=== PATIENT | female | born 1940 | race Caucasian/White ===

== ENCOUNTER 2021-07-25 09:39 | Inpatient (IN) ==
[2021-07-25 11:39] LABS: Basophils % 0.3 %; Eosinophils # 0.1 K/mcL (0.0-0.6); Eosinophils % 0.6 %; Hematocrit 38.2 % (35.3-44.9); Immature Granulocytes % 0.3 % (0-4); Mean Corpuscular HGB Conc 31.9 g/dL (31.6-35.5); Mean Corpuscular Hemoglobin 30.9 pg (28.0-33.3); Mean Corpuscular Volume 96.7 fL (83.0-100.0); Mean Platelet Volume 12.7 fL (9.4-12.4); Monocytes # 0.8 K/mcL (0.0-1.3); Monocytes % 7.3 %; Neutrophils # 9.2 K/mcL (1.6-8.9); Platelet Count 232 K/mcL (140-400); Red Blood Count 3.95 M/mcL (3.82-4.97); Red Cell Distribution Width 14.2 % (11.5-14.5); Segmented Neutrophils % 82.5 %; White Blood Count 11.1 K/mcL (4.3-11.1)
[2021-07-25 11:47] LABS: Hemoglobin 12.2 g/dL (11.5-15.4)
[2021-07-25 11:56] LABS: Troponin I 0.07 ng/mL (< 0.04)
[2021-07-25 12:00] LABS: INR 1.3; Prothrombin Time 14.8 Seconds (9.4-12.1)
[2021-07-25 12:02] LABS: Activated Partial Thrombo Time 32.2 Seconds (26.0-36.0)
[2021-07-25 12:06] LABS: Alanine Aminotransferase 8 Units/L (7-52); Albumin 3.6 g/dL (3.5-5.7); Albumin/Globulin Ratio 1.3 (1.1-2.2); Alkaline Phosphatase 89 Units/L (34-104); Aspartate Amino Transferase 13 Units/L (13-39); BUN/Creatinine Ratio 24 (6-26); Bilirubin,Total 0.5 mg/dL (0.3-1.0); Blood Urea Nitrogen 19 mg/dL (8-23); Calcium 9.6 mg/dL (8.6-10.3); Carbon Dioxide 27 mEq/L (23-29); Chloride 104 mEq/L (98-107); Globulin 2.7 g/dL (2.4-3.5); Glucose 111 mg/dL (70-105); Osmolality,Calculated 295 (280-300); Potassium 3.6 mEq/L (3.5-5.1); Sodium 141 mEq/L (136-145); Total Protein 6.3 g/dL (6.4-8.9); eGFR For African Americans > 60 (> 60); eGFR For Non-African Americans > 60 (> 60)
[2021-07-25 15:40] LABS: Bacteria,Urine Few per hpf (None-Few); Bilirubin,Urine Negative (Negative); Blood,Urine Moderate (Negative); Clarity,Urine Clear (Clear); Color,Urine Light-Yellow (Yellow); Glucose,Urine (UA) Normal (Normal); Ketones,Urine Negative (Negative); Leukocyte Esterase,Urine Negative (Negative); Mucus,Urine Few per lpf (None-Few); Nitrite,Urine Negative (Negative); Protein,Urine Negative (Neg-Trace); Specific Gravity,Urine 1.012 (1.010-1.025); Squamous Epithelial Cell,Urine Few per hpf (None-Few); Urobilinogen,Urine Normal (Normal); WBC,Urine 0-3 per hpf (0-3)
[2021-07-25] MEDS ORDERED: Melatonin 3 MG TABLET PO PRN (16:49)
[2021-07-25] MEDS ORDERED: Mag Hydrox/Al Hydrox/Simeth 30 ML UDC PO PRN (16:49)
[2021-07-25] MEDS ORDERED: Ondansetron ODT 4 MG TAB.RAPDIS SL PRN (16:49)
[2021-07-25] MEDS ORDERED: Naloxone 0.4 MG/ML INJ IVP PRN (16:49)
[2021-07-25] MEDS ORDERED: MOM Conc 10 ML UD.LIQ PO PRN (16:49)
[2021-07-25] MEDS ORDERED: Perflutren Lipid Microsphere 1.3 ML in 0.9 % Sodium Chloride 8.7 ML IVP PRN (16:53)
[2021-07-25] MEDS: cefTRIAXone 1,000 MG in 0.9 % Sodium Chloride Mini Bag 100 ML IVPB SCH (20:43)
[2021-07-25] MEDS: lisinopriL 20 MG TABLET PO SCH (20:48)
[2021-07-25] MEDS ORDERED: Mirtazapine 15 MG TABLET PO SCH (21:00)
[2021-07-25] MEDS: Apixaban 5 MG TABLET PO SCH (23:56)
[2021-07-26] MEDS ORDERED: *HR* Enoxaparin 40 MG/0.4 ML SYRINGE SQ SCH (06:00)
[2021-07-26] MEDS ORDERED: Gadolinium Contrast Agent (WT Based) IV PRN ×2 (07:20→18:13)
[2021-07-26] MEDS ORDERED: OLANZapine 5 MG TAB.RAPDIS PO ONE ×2 (07:42→11:01)
[2021-07-26 08:24] LABS: Hemoglobin 12.8 g/dL (11.5-15.4); Mean Corpuscular Volume 96.2 fL (83.0-100.0); Mean Platelet Volume 13.1 fL (9.4-12.4)
[2021-07-26 08:25] LABS: Hematocrit 40.6 % (35.3-44.9); Immature Platelets 11.7 % (1.1-6.1); Mean Corpuscular HGB Conc 31.5 g/dL (31.6-35.5); Mean Corpuscular Hemoglobin 30.3 pg (28.0-33.3); Red Blood Count 4.22 M/mcL (3.82-4.97); White Blood Count 11.7 K/mcL (4.3-11.1)
[2021-07-26] MEDS ORDERED: *HR* FentaNYL (PF) 100 MCG/2 ML VIAL IVP PRN (08:46)
[2021-07-26 08:55] LABS: BUN/Creatinine Ratio 27 (6-26); Blood Urea Nitrogen 18 mg/dL (8-23); Calcium 9.3 mg/dL (8.6-10.3); Carbon Dioxide 24 mEq/L (23-29); Chloride 102 mEq/L (98-107); Glucose 73 mg/dL (70-105); Osmolality,Calculated 284 (280-300); Potassium 4.2 mEq/L (3.5-5.1); Sodium 137 mEq/L (136-145); eGFR For African Americans > 60 (> 60); eGFR For Non-African Americans > 60 (> 60)
[2021-07-26] MEDS ORDERED: hydroCHLOROthiazide 25 MG TABLET PO SCH (09:00)
[2021-07-26] MEDS ORDERED: DilTIAZem CD (24hr) 240 MG CAP.ER.24H PO SCH (09:00)
[2021-07-26] MEDS ORDERED: carBAMazepine 200 MG TABLET PO SCH (09:00)
[2021-07-26] MEDS ORDERED: Cholecalciferol (D-3) 1,000 UNIT (25MCG) TABLET PO SCH (09:00)
[2021-07-26] MEDS: cefTRIAXone 1,000 MG in 0.9 % Sodium Chloride Mini Bag 100 ML IVPB SCH (09:02)
[2021-07-26] MEDS: Apixaban 5 MG TABLET PO SCH (09:02)
[2021-07-26] MEDS: lisinopriL 20 MG TABLET PO SCH (09:03)
[2021-07-26] MEDS ORDERED: Acetaminophen 325 MG TABLET PO PRN ×2 (11:01→18:13)
[2021-07-26] MEDS ORDERED: Lidocaine/EPI 1:100k 1% 20 ML VIAL ONE (13:55)
[2021-07-26] MEDS ORDERED: Ondansetron 4 MG/2 ML VIAL ONE (14:26)
[2021-07-26] MEDS ORDERED: *HR* Propofol 200 MG/20 ML VIAL IVP ONE (14:26)
[2021-07-26] MEDS ORDERED: *HR* Etomidate 40 MG/20 ML VIAL IVP ONE (14:26)
[2021-07-26] MEDS ORDERED: *HR* FentaNYL (PF) 100 MCG/2 ML VIAL ONE (14:26)
[2021-07-26] MEDS ORDERED: Lidocaine -MPF 2% 5 ML VIAL ONE (14:26)
[2021-07-26] MEDS ORDERED: QUEtiapine Fumarate 25 MG TABLET PO SCH (16:00)
[2021-07-26] MEDS ORDERED: EPHEDrine 50 MG/ML VIAL ONE (16:50)
[2021-07-26] MEDS ORDERED: Morphine Sulfate 2 MG/ML SYRINGE IVP PRN (16:58)
[2021-07-26] MEDS ORDERED: *HR* Etomidate 20 MG/10 ML AMPUL IVP ONE (18:00)
[2021-07-26] MEDS ORDERED: *HR* Midazolam HCl 5 MG/5 ML VIAL IVP ONE (18:00)
[2021-07-26] MEDS ORDERED: Ondansetron ODT 4 MG TAB.RAPDIS SL PRN (18:13)
[2021-07-26] MEDS ORDERED: Melatonin 3 MG TABLET PO PRN (18:13)
[2021-07-26] MEDS ORDERED: Perflutren Lipid Microsphere 1.3 ML in 0.9 % Sodium Chloride 8.7 ML IVP PRN (18:13)
[2021-07-26] MEDS ORDERED: MOM Conc 10 ML UD.LIQ PO PRN (18:13)
[2021-07-26] MEDS ORDERED: Mag Hydrox/Al Hydrox/Simeth 30 ML UDC PO PRN (18:13)
[2021-07-26] MEDS ORDERED: Naloxone 0.4 MG/ML INJ IVP PRN (18:13)
[2021-07-26] MEDS ORDERED: cefTRIAXone 1,000 MG in Water for inj. (sterile) 10 ML IVP SCH (20:00)
[2021-07-26] MEDS ORDERED: *HR* Amiodarone 450 MG/9 ML VIAL IVC ONE (20:00)
[2021-07-26] MEDS ORDERED: *HR* Amiodarone 150 MG/3 ML VIAL IVPB ONE (20:00)
[2021-07-26] MEDS ORDERED: *HR* Magnesium Sulfate 2 GM/50 ML PIGGYBACK IVPB ONE (20:00)
[2021-07-26] MEDS ORDERED: *HR* EPINEPHrine 1 MG/10 ML SYRINGE IVP ONE (20:00)
[2021-07-26] MEDS ORDERED: Norepinephrine 4 MG/254 ML in 0.9% Sodium Chloride IVC ONE (20:00)
[2021-07-26] MEDS ORDERED: *HR* Heparin 5,000 UNIT/ML VIAL IVP PRN ×2 (20:20)
[2021-07-26] MEDS ORDERED: *HR* Heparin 5,000 UNIT/ML VIAL IVP ONE (20:20)
[2021-07-26] MEDS ORDERED: Heparin 25,000UNIT/250ML 1/2NS 25,000 UNIT/250 ML IV.SOLN IVC SCH (20:30)
[2021-07-26] MEDS ORDERED: Artificial Tears SOLN 15 ML BOTTLE BOTH EYES PRN (20:48)
[2021-07-26] MEDS ORDERED: Apixaban 5 MG TABLET PO SCH (21:00)
[2021-07-26] MEDS ORDERED: lisinopriL 20 MG TABLET PO SCH (21:00)
[2021-07-26] MEDS ORDERED: Mirtazapine 15 MG TABLET PO SCH (21:00)
[2021-07-26] MEDS: Norepinephrine 4 MG/254 ML IV.SOLN IVC SCH (21:05)
[2021-07-26] MEDS: FentaNYL (PF) 1,000 MCG/100 ML IV.SOLN IVC SCH (21:10)
[2021-07-26] MEDS: Chlorhexidine Rinse 15 ML MOUTHWASH MM SCH (21:30)
[2021-07-26] MEDS: QUEtiapine Fumarate 25 MG TABLET PO SCH (21:30)
[2021-07-26] MEDS: Midazolam HCl 50 MG/100 ML IV.SOLN IVC SCH (21:52)
[2021-07-26] MEDS ORDERED: Isovue-370 500 ML BOTTLE IVP ONE (22:00)
[2021-07-26 22:20] LABS: Hematocrit 46.5 % (35.3-44.9); Mean Corpuscular HGB Conc 31.2 g/dL (31.6-35.5); Mean Corpuscular Hemoglobin 30.7 pg (28.0-33.3); Mean Corpuscular Volume 98.3 fL (83.0-100.0); Mean Platelet Volume 11.9 fL (9.4-12.4); Platelet Count 253 K/mcL (140-400); Red Blood Count 4.73 M/mcL (3.82-4.97); Red Cell Distribution Width 14.1 % (11.5-14.5)
[2021-07-26 22:21] LABS: Hemoglobin 14.5 g/dL (11.5-15.4)
[2021-07-26 22:22] LABS: ABG Base Excess -5 mEq/L (-2 to 3); ABG HCO3 19 mEq/L (21-27); ABG Oxygen Saturation 100 % (95-98); ABG PCO2 31 mmHg (35-45); ABG PO2 289 mmHg (85-104); ABG TCO2 20 mEq/L (20-26); Blood Gas VT 450 cc
[2021-07-26 22:23] LABS: Heparin anti-factor XA UFH 0.48 IU/mL (0.30-0.70); INR 1.2; Prothrombin Time 13.7 Seconds (9.4-12.1)
[2021-07-26] MEDS ORDERED: 0.9 % Sodium Chloride 250 ML ONE (22:38)
[2021-07-27] MEDS ORDERED: Perflutren Lipid Microsphere 1.3 ML in 0.9 % Sodium Chloride 8.7 ML IVP PRN (00:14)
[2021-07-27] MEDS ORDERED: Amiodarone Premix 360 MG/200 ML BAG IVC ONE (00:17)
[2021-07-27] MEDS ORDERED: Amiodarone Premix 150 MG/100 ML BAG IVPB ONE (00:17)
[2021-07-27] MEDS: Artificial Tears SOLN 15 ML BOTTLE BOTH EYES SCH ×7 (01:06→23:30)
[2021-07-27] MEDS: Amiodarone Premix 360 MG/200 ML BAG IVC SCH ×3 (02:06→23:29)
[2021-07-27 02:22] LABS: VBG Ionized Calcium 1.12 mmol/L (1.15-1.35)
[2021-07-27 02:26] LABS: INR 1.4; Prothrombin Time 15.6 Seconds (9.4-12.1)
[2021-07-27 02:43] LABS: Magnesium 1.9 mg/dL (1.6-2.6)
[2021-07-27 02:50] LABS: Troponin I 2.6 ng/mL (< 0.04)
[2021-07-27] MEDS: FentaNYL (PF) 1,000 MCG/100 ML IV.SOLN IVC SCH ×2 (03:49→22:11)
[2021-07-27 04:04] LABS: ABG Base Excess -1 mEq/L (-2 to 3); ABG HCO3 20 mEq/L (21-27); ABG Oxygen Saturation 100 % (95-98); ABG PCO2 25 mmHg (35-45); ABG PH 7.51 pH Units (7.32-7.45); ABG PO2 172 mmHg (85-104); ABG TCO2 21 mEq/L (20-26); Blood Gas VT 450 cc
[2021-07-27] MEDS: Norepinephrine 4 MG/254 ML IV.SOLN IVC SCH ×2 (05:13→16:09)
[2021-07-27] MEDS: 0.9 % Sodium Chloride 1,000 ML IVC SCH ×3 (05:37→23:29)
[2021-07-27] MEDS ORDERED: *HR* Dextrose 50 % in Water (Syg) 50 ML SYRINGE IVP PRN (06:31)
[2021-07-27] MEDS ORDERED: Dextrose Gel 15 GM/37.5 ML TUBE PO PRN ×2 (06:31)
[2021-07-27] MEDS ORDERED: D5% in Water 1,000 ML IVC PRN (06:31)
[2021-07-27] MEDS: MetroNIDAZOLE 500 MG/100 ML 500 MG/100 ML BAG IVPB SCH ×3 (08:36→23:29)
[2021-07-27] MEDS: Chlorhexidine Rinse 15 ML MOUTHWASH MM SCH ×2 (08:37→19:49)
[2021-07-27] MEDS ORDERED: hydroCHLOROthiazide 25 MG TABLET PO SCH (09:00)
[2021-07-27] MEDS ORDERED: Cholecalciferol (D-3) 1,000 UNIT (25MCG) TABLET PO SCH (09:00)
[2021-07-27] MEDS ORDERED: carBAMazepine 200 MG TABLET PO SCH (09:00)
[2021-07-27] MEDS ORDERED: cefTRIAXone 1,000 MG in 0.9 % Sodium Chloride Mini Bag 100 ML IVPB SCH (09:00)
[2021-07-27 09:09] LABS: Basophils % 0.3 %; Eosinophils % 0.1 %; Hematocrit 38.8 % (35.3-44.9); Immature Granulocytes % 0.5 % (0-4); Lymphocytes # 1.6 K/mcL (0.6-4.6); Lymphocytes % 10.2 %; Mean Corpuscular HGB Conc 31.7 g/dL (31.6-35.5); Mean Corpuscular Hemoglobin 30.1 pg (28.0-33.3); Mean Corpuscular Volume 95.1 fL (83.0-100.0); Mean Platelet Volume 11.7 fL (9.4-12.4); Monocytes # 1.2 K/mcL (0.0-1.3); Monocytes % 7.8 %; Neutrophils # 12.5 K/mcL (1.6-8.9); Platelet Count 249 K/mcL (140-400); Red Blood Count 4.08 M/mcL (3.82-4.97); Red Cell Distribution Width 14.2 % (11.5-14.5); Segmented Neutrophils % 81.1 %; White Blood Count 15.5 K/mcL (4.3-11.1)
[2021-07-27 09:22] LABS: Hemoglobin 12.3 g/dL (11.5-15.4)
[2021-07-27] MEDS ORDERED: Pantoprazole 40 MG VIAL IVP ONE (10:29)
[2021-07-27 10:34] LABS: Bilirubin,Urine Negative (Negative); Blood,Urine Moderate (Negative); Budding Yeast,Urine Few per hpf (None Seen); Clarity,Urine Turbid (Clear); Color,Urine Yellow (Yellow); Glucose,Urine (UA) Normal (Normal); Ketones,Urine Negative (Negative); Leukocyte Esterase,Urine Negative (Negative); Mucus,Urine Few per lpf (None-Few); Nitrite,Urine Negative (Negative); PH,Urine 5.5 pH Units (5.0-8.0); Protein,Urine 70 mg/dL (Neg-Trace); RBC,Urine 30-50 per hpf (0-3); Specific Gravity,Urine > 1.030 (1.010-1.025); Squamous Epithelial Cell,Urine Few per hpf (None-Few); Urobilinogen,Urine Normal (Normal)
[2021-07-27] MEDS: Insulin LISPRO 300 UNITS/3 ML VIAL SUBQ SCH ×2 (11:56→18:18)
[2021-07-27] MEDS: Midazolam HCl 50 MG/100 ML IV.SOLN IVC SCH (16:10)
[2021-07-27] MEDS: cefTRIAXone 2,000 MG in Water for inj. (sterile) 20 ML IVP SCH (18:17)
[2021-07-27] MEDS: QUEtiapine Fumarate 25 MG TABLET PO SCH (19:50)
[2021-07-28] MEDS: Insulin LISPRO 300 UNITS/3 ML VIAL SUBQ SCH ×4 (00:06→17:20)
[2021-07-28] MEDS: Norepinephrine 4 MG/254 ML IV.SOLN IVC SCH ×2 (01:24→21:05)
[2021-07-28] MEDS: Artificial Tears SOLN 15 ML BOTTLE BOTH EYES SCH ×5 (03:07→20:46)
[2021-07-28 03:13] LABS: Basophils # 0.1 K/mcL (0.0-0.2); Basophils % 0.4 %; Eosinophils # 0.1 K/mcL (0.0-0.6); Eosinophils % 0.7 %; Hematocrit 34.3 % (35.3-44.9); Hemoglobin 11.1 g/dL (11.5-15.4); Immature Granulocytes % 0.4 % (0-4); Lymphocytes # 1.1 K/mcL (0.6-4.6); Lymphocytes % 6.6 %; Mean Corpuscular HGB Conc 32.4 g/dL (31.6-35.5); Mean Corpuscular Hemoglobin 31.4 pg (28.0-33.3); Mean Corpuscular Volume 96.9 fL (83.0-100.0); Mean Platelet Volume 11.5 fL (9.4-12.4); Monocytes # 1.1 K/mcL (0.0-1.3); Neutrophils # 13.8 K/mcL (1.6-8.9); Platelet Count 191 K/mcL (140-400); Red Blood Count 3.54 M/mcL (3.82-4.97); Red Cell Distribution Width 14.5 % (11.5-14.5); Segmented Neutrophils % 84.9 %; White Blood Count 16.3 K/mcL (4.3-11.1)
[2021-07-28 03:33] LABS: Calcium 7.9 mg/dL (8.6-10.3); Potassium 3.4 mEq/L (3.5-5.1)
[2021-07-28 04:30] LABS: ABG Base Excess -4 mEq/L (-2 to 3); ABG HCO3 21 mEq/L (21-27); ABG Oxygen Saturation 95 % (95-98); ABG PCO2 39 mmHg (35-45); ABG PH 7.34 pH Units (7.32-7.45); ABG PO2 81 mmHg (85-104); ABG TCO2 23 mEq/L (20-26); Blood Gas Modality ASSIST CONTROL; Blood Gas VT 400 cc
[2021-07-28] MEDS: Pantoprazole 40 MG VIAL IVP SCH (08:09)
[2021-07-28] MEDS: MetroNIDAZOLE 500 MG/100 ML 500 MG/100 ML BAG IVPB SCH ×2 (08:10→15:07)
[2021-07-28] MEDS: Chlorhexidine Rinse 15 ML MOUTHWASH MM SCH ×2 (08:10→20:46)
[2021-07-28] MEDS: FentaNYL (PF) 1,000 MCG/100 ML IV.SOLN IVC SCH ×2 (09:20→17:57)
[2021-07-28] MEDS: Amiodarone Premix 360 MG/200 ML BAG IVC SCH (09:30)
[2021-07-28] MEDS: cefTRIAXone 2,000 MG in Water for inj. (sterile) 20 ML IVP SCH (17:21)
[2021-07-28] MEDS: Midazolam HCl 50 MG/100 ML IV.SOLN IVC SCH (20:46)
[2021-07-28] MEDS: QUEtiapine Fumarate 25 MG TABLET PO SCH (20:46)
[2021-07-29] MEDS: FentaNYL (PF) 1,000 MCG/100 ML IV.SOLN IVC SCH ×3 (02:15→17:45)
[2021-07-29] MEDS: Artificial Tears SOLN 15 ML BOTTLE BOTH EYES SCH ×6 (03:22→19:45)
[2021-07-29 03:31] LABS: Basophils # 0.1 K/mcL (0.0-0.2); Basophils % 0.3 %; Eosinophils # 0.2 K/mcL (0.0-0.6); Hematocrit 32.9 % (35.3-44.9); Hemoglobin 10.3 g/dL (11.5-15.4); Immature Granulocytes % 0.7 % (0-4); Lymphocytes # 1.1 K/mcL (0.6-4.6); Lymphocytes % 6.2 %; Mean Corpuscular HGB Conc 31.3 g/dL (31.6-35.5); Mean Corpuscular Hemoglobin 30.9 pg (28.0-33.3); Mean Corpuscular Volume 98.8 fL (83.0-100.0); Mean Platelet Volume 12.1 fL (9.4-12.4); Neutrophils # 14.9 K/mcL (1.6-8.9); Platelet Count 168 K/mcL (140-400); Red Blood Count 3.33 M/mcL (3.82-4.97); Red Cell Distribution Width 14.8 % (11.5-14.5); Segmented Neutrophils % 85.8 %; White Blood Count 17.3 K/mcL (4.3-11.1)
[2021-07-29 03:50] LABS: Potassium 3.4 mEq/L (3.5-5.1)
[2021-07-29 05:00] LABS: ABG Base Excess -4 mEq/L (-2 to 3); ABG HCO3 20 mEq/L (21-27); ABG Oxygen Saturation 98 % (95-98); ABG PCO2 35 mmHg (35-45); ABG PH 7.37 pH Units (7.32-7.45); ABG PO2 105 mmHg (85-104); ABG TCO2 21 mEq/L (20-26); Blood Gas Modality ASSIST CONTROL; Blood Gas VT 400 cc
[2021-07-29] MEDS: Insulin LISPRO 300 UNITS/3 ML VIAL SUBQ SCH ×4 (06:21→15:51)
[2021-07-29] MEDS: Pantoprazole 40 MG VIAL IVP SCH (07:38)
[2021-07-29] MEDS: MetroNIDAZOLE 500 MG/100 ML 500 MG/100 ML BAG IVPB SCH ×3 (07:38→15:53)
[2021-07-29] MEDS: Chlorhexidine Rinse 15 ML MOUTHWASH MM SCH ×2 (07:38→19:45)
[2021-07-29] MEDS: Amiodarone Premix 360 MG/200 ML BAG IVC SCH ×2 (07:49→21:00)
[2021-07-29] MEDS ORDERED: Vancomycin 1,250 MG/262.5 ML IV.SOLN IVPB ONE (16:00)
[2021-07-29] MEDS: QUEtiapine Fumarate 25 MG TABLET PO SCH (19:45)
[2021-07-30] MEDS: Norepinephrine 4 MG/254 ML IV.SOLN IVC SCH ×5 (00:11→19:22)
[2021-07-30] MEDS: Artificial Tears SOLN 15 ML BOTTLE BOTH EYES SCH ×7 (00:40→23:19)
[2021-07-30] MEDS: MetroNIDAZOLE 500 MG/100 ML 500 MG/100 ML BAG IVPB SCH ×4 (00:41→23:18)
[2021-07-30] MEDS: Insulin LISPRO 300 UNITS/3 ML VIAL SUBQ SCH ×5 (00:42→23:30)
[2021-07-30] MEDS: FentaNYL (PF) 1,000 MCG/100 ML IV.SOLN IVC SCH ×3 (01:44→21:07)
[2021-07-30 04:48] LABS: ABG Base Excess -4 mEq/L (-2 to 3); ABG HCO3 21 mEq/L (21-27); ABG Oxygen Saturation 97 % (95-98); ABG PCO2 38 mmHg (35-45); ABG PH 7.35 pH Units (7.32-7.45); ABG PO2 98 mmHg (85-104); ABG TCO2 22 mEq/L (20-26); Blood Gas VT 400 cc
[2021-07-30 04:58] LABS: Calcium 8.4 mg/dL (8.6-10.3); Potassium 3.1 mEq/L (3.5-5.1)
[2021-07-30 05:02] LABS: Basophils % 0.3 %; Eosinophils # 0.2 K/mcL (0.0-0.6); Eosinophils % 1.5 %; Hematocrit 32.5 % (35.3-44.9); Hemoglobin 10.3 g/dL (11.5-15.4); Immature Granulocytes % 0.7 % (0-4); Lymphocytes # 1.2 K/mcL (0.6-4.6); Lymphocytes % 8.1 %; Mean Corpuscular HGB Conc 31.7 g/dL (31.6-35.5); Mean Corpuscular Hemoglobin 31.3 pg (28.0-33.3); Mean Corpuscular Volume 98.8 fL (83.0-100.0); Mean Platelet Volume 12.6 fL (9.4-12.4); Monocytes # 0.8 K/mcL (0.0-1.3); Monocytes % 5.2 %; Neutrophils # 12.4 K/mcL (1.6-8.9); Platelet Count 177 K/mcL (140-400); Red Blood Count 3.29 M/mcL (3.82-4.97); Red Cell Distribution Width 14.8 % (11.5-14.5); Segmented Neutrophils % 84.2 %; White Blood Count 14.7 K/mcL (4.3-11.1)
[2021-07-30] MEDS ORDERED: Potassium Chloride Elixir 20 MEQ/15 ML UDC GTUBE ONE (05:24)
[2021-07-30] MEDS: Amiodarone Premix 360 MG/200 ML BAG IVC SCH ×2 (07:51→21:36)
[2021-07-30] MEDS: Chlorhexidine Rinse 15 ML MOUTHWASH MM SCH ×2 (07:52→19:36)
[2021-07-30] MEDS: Pantoprazole 40 MG VIAL IVP SCH (07:52)
[2021-07-30] MEDS: Midazolam HCl 50 MG/100 ML IV.SOLN IVC SCH ×2 (19:20→19:22)
[2021-07-30] MEDS: Dexmedetomidine HCl 400 MCG/100 ML MLS IVC SCH ×2 (19:20→19:21)
[2021-07-30] MEDS: QUEtiapine Fumarate 25 MG TABLET PO SCH (19:36)
[2021-07-31] MEDS: Norepinephrine 4 MG/254 ML IV.SOLN IVC SCH ×3 (00:08→20:52)
[2021-07-31] MEDS: Artificial Tears SOLN 15 ML BOTTLE BOTH EYES SCH ×5 (03:15→19:43)
[2021-07-31 04:07] LABS: Hematocrit 33.5 % (35.3-44.9); Hemoglobin 10.2 g/dL (11.5-15.4); Immature Granulocytes % 2.5 % (0-4); Lymphocytes % 2.9 %; Mean Corpuscular HGB Conc 30.4 g/dL (31.6-35.5); Mean Corpuscular Hemoglobin 30.4 pg (28.0-33.3); Mean Platelet Volume 12.4 fL (9.4-12.4); Monocytes % 2.4 %; Platelet Count 183 K/mcL (140-400); Red Blood Count 3.35 M/mcL (3.82-4.97); Red Cell Distribution Width 15.2 % (11.5-14.5); Segmented Neutrophils % 91.5 %; White Blood Count 14.7 K/mcL (4.3-11.1)
[2021-07-31 04:08] LABS: Basophils # 0.1 K/mcL (0.0-0.2); Basophils % 0.6 %; Eosinophils % 0.1 %; Lymphocytes # 0.4 K/mcL (0.6-4.6); Monocytes # 0.4 K/mcL (0.0-1.3); Neutrophils # 13.4 K/mcL (1.6-8.9)
[2021-07-31 04:20] LABS: ABG Base Excess -5 mEq/L (-2 to 3); ABG HCO3 21 mEq/L (21-27); ABG Oxygen Saturation 93 % (95-98); ABG PCO2 38 mmHg (35-45); ABG PH 7.34 pH Units (7.32-7.45); ABG PO2 72 mmHg (85-104); ABG TCO2 22 mEq/L (20-26); Blood Gas VT 400 cc
[2021-07-31 04:22] LABS: Calcium 8.2 mg/dL (8.6-10.3); Magnesium 1.8 mg/dL (1.6-2.6)
[2021-07-31] MEDS: Insulin LISPRO 300 UNITS/3 ML VIAL SUBQ SCH ×3 (05:03→18:15)
[2021-07-31] MEDS: FentaNYL (PF) 1,000 MCG/100 ML IV.SOLN IVC SCH ×3 (05:04→23:53)
[2021-07-31] MEDS: MetroNIDAZOLE 500 MG/100 ML 500 MG/100 ML BAG IVPB SCH ×2 (08:20→16:22)
[2021-07-31] MEDS: Amiodarone Premix 360 MG/200 ML BAG IVC SCH ×2 (08:21→19:43)
[2021-07-31] MEDS: Chlorhexidine Rinse 15 ML MOUTHWASH MM SCH ×2 (08:21→19:43)
[2021-07-31] MEDS: Pantoprazole 40 MG VIAL IVP SCH (08:21)
[2021-07-31] MEDS: QUEtiapine Fumarate 25 MG TABLET PO SCH (19:43)
[2021-07-31] MEDS: Midazolam HCl 50 MG/100 ML IV.SOLN IVC SCH (19:53)
[2021-07-31] MEDS: Dexmedetomidine HCl 400 MCG/100 ML MLS IVC SCH (19:53)
[2021-08-01] MEDS: Artificial Tears SOLN 15 ML BOTTLE BOTH EYES SCH ×7 (00:16→23:26)
[2021-08-01] MEDS: Insulin LISPRO 300 UNITS/3 ML VIAL SUBQ SCH ×4 (00:16→17:17)
[2021-08-01] MEDS: MetroNIDAZOLE 500 MG/100 ML 500 MG/100 ML BAG IVPB SCH ×4 (00:16→23:27)
[2021-08-01 04:33] LABS: ABG Base Excess -3 mEq/L (-2 to 3); ABG HCO3 21 mEq/L (21-27); ABG Oxygen Saturation 97 % (95-98); ABG PCO2 35 mmHg (35-45); ABG PH 7.39 pH Units (7.32-7.45); ABG PO2 94 mmHg (85-104); ABG TCO2 22 mEq/L (20-26); Blood Gas VT 400 cc
[2021-08-01] MEDS: Amiodarone Premix 360 MG/200 ML BAG IVC SCH (06:16)
[2021-08-01] MEDS: Pantoprazole 40 MG VIAL IVP SCH (07:08)
[2021-08-01] MEDS: Chlorhexidine Rinse 15 ML MOUTHWASH MM SCH ×2 (07:08→21:16)
[2021-08-01] MEDS: Norepinephrine 4 MG/254 ML IV.SOLN IVC SCH (08:32)
[2021-08-01] MEDS: Dexmedetomidine HCl 400 MCG/100 ML MLS IVC SCH (08:32)
[2021-08-01] MEDS ORDERED: *HR* Alteplase (Cathflo) 2 MG VIAL IVP ONE (08:57)
[2021-08-01] MEDS: FentaNYL (PF) 1,000 MCG/100 ML IV.SOLN IVC SCH ×2 (10:32→21:15)
[2021-08-01 12:11] LABS: Basophils % 0.1 %; Hematocrit 34.8 % (35.3-44.9); Hemoglobin 11.1 g/dL (11.5-15.4); Immature Granulocytes % 1.2 % (0-4); Lymphocytes % 5.9 %; Mean Corpuscular HGB Conc 31.9 g/dL (31.6-35.5); Mean Corpuscular Volume 97.2 fL (83.0-100.0); Mean Platelet Volume 12.3 fL (9.4-12.4); Monocytes # 0.8 K/mcL (0.0-1.3); Monocytes % 4.7 %; Neutrophils # 14.2 K/mcL (1.6-8.9); Platelet Count 217 K/mcL (140-400); Red Blood Count 3.58 M/mcL (3.82-4.97); Red Cell Distribution Width 14.9 % (11.5-14.5); Segmented Neutrophils % 88.1 %; White Blood Count 16.1 K/mcL (4.3-11.1)
[2021-08-01 12:30] LABS: Calcium 8.7 mg/dL (8.6-10.3); Magnesium 1.9 mg/dL (1.6-2.6); Potassium 4.1 mEq/L (3.5-5.1)
[2021-08-01] MEDS: QUEtiapine Fumarate 25 MG TABLET PO SCH (21:15)
[2021-08-02] MEDS: Insulin LISPRO 300 UNITS/3 ML VIAL SUBQ SCH ×4 (00:09→23:10)
[2021-08-02 03:17] LABS: Basophils % 0.1 %; Hematocrit 38.4 % (35.3-44.9); Hemoglobin 12.1 g/dL (11.5-15.4); Immature Granulocytes % 1.6 % (0-4); Lymphocytes # 0.9 K/mcL (0.6-4.6); Lymphocytes % 4.8 %; Mean Corpuscular HGB Conc 31.5 g/dL (31.6-35.5); Mean Corpuscular Hemoglobin 30.4 pg (28.0-33.3); Mean Corpuscular Volume 96.5 fL (83.0-100.0); Mean Platelet Volume 11.9 fL (9.4-12.4); Monocytes # 0.7 K/mcL (0.0-1.3); Monocytes % 3.9 %; Neutrophils # 15.7 K/mcL (1.6-8.9); Platelet Count 237 K/mcL (140-400); Red Blood Count 3.98 M/mcL (3.82-4.97); Red Cell Distribution Width 14.9 % (11.5-14.5); Segmented Neutrophils % 89.6 %; White Blood Count 17.6 K/mcL (4.3-11.1)
[2021-08-02 03:27] LABS: VBG Ionized Calcium 1.24 mmol/L (1.15-1.35)
[2021-08-02 03:41] LABS: Calcium 8.6 mg/dL (8.6-10.3); Phosphorous 5.3 mg/dL (2.7-4.5); Potassium 4.2 mEq/L (3.5-5.1)
[2021-08-02] MEDS: Artificial Tears SOLN 15 ML BOTTLE BOTH EYES SCH ×6 (03:45→23:13)
[2021-08-02 04:45] LABS: ABG Base Excess -4 mEq/L (-2 to 3); ABG HCO3 20 mEq/L (21-27); ABG Oxygen Saturation 98 % (95-98); ABG PCO2 32 mmHg (35-45); ABG PO2 103 mmHg (85-104); ABG TCO2 21 mEq/L (20-26); Blood Gas Modality ASSIST CONTROL; Blood Gas VT 400 cc
[2021-08-02] MEDS: Amiodarone Premix 360 MG/200 ML BAG IVC SCH ×2 (06:10→19:00)
[2021-08-02] MEDS: FentaNYL (PF) 1,000 MCG/100 ML IV.SOLN IVC SCH ×2 (07:00→17:45)
[2021-08-02] MEDS: MetroNIDAZOLE 500 MG/100 ML 500 MG/100 ML BAG IVPB SCH ×3 (08:47→23:13)
[2021-08-02] MEDS: Pantoprazole 40 MG VIAL IVP SCH (08:49)
[2021-08-02] MEDS: Chlorhexidine Rinse 15 ML MOUTHWASH MM SCH ×2 (08:49→20:49)
[2021-08-02] MEDS: Midazolam HCl 50 MG/100 ML IV.SOLN IVC SCH ×2 (16:04→20:35)
[2021-08-02] MEDS: Norepinephrine 4 MG/254 ML IV.SOLN IVC SCH ×2 (20:32→23:11)
[2021-08-02] MEDS: Dexmedetomidine HCl 400 MCG/100 ML MLS IVC SCH (20:34)
[2021-08-02] MEDS: QUEtiapine Fumarate 25 MG TABLET PO SCH (20:49)
[2021-08-03] MEDS: FentaNYL (PF) 1,000 MCG/100 ML IV.SOLN IVC SCH (02:00)
[2021-08-03] MEDS: Norepinephrine 4 MG/254 ML IV.SOLN IVC SCH ×3 (02:39→20:23)
[2021-08-03] MEDS: Artificial Tears SOLN 15 ML BOTTLE BOTH EYES SCH ×6 (03:36→23:36)
[2021-08-03 04:00] LABS: Basophils % 0.2 %; Hematocrit 36.8 % (35.3-44.9); Hemoglobin 11.8 g/dL (11.5-15.4); Immature Granulocytes % 1.3 % (0-4); Lymphocytes # 0.7 K/mcL (0.6-4.6); Lymphocytes % 3.5 %; Mean Corpuscular HGB Conc 32.1 g/dL (31.6-35.5); Mean Corpuscular Hemoglobin 30.8 pg (28.0-33.3); Mean Corpuscular Volume 96.1 fL (83.0-100.0); Mean Platelet Volume 12.6 fL (9.4-12.4); Monocytes # 0.7 K/mcL (0.0-1.3); Monocytes % 3.6 %; Neutrophils # 18.1 K/mcL (1.6-8.9); Platelet Count 226 K/mcL (140-400); Red Blood Count 3.83 M/mcL (3.82-4.97); Red Cell Distribution Width 14.9 % (11.5-14.5); Segmented Neutrophils % 91.4 %; White Blood Count 19.8 K/mcL (4.3-11.1)
[2021-08-03 04:15] LABS: VBG Ionized Calcium 1.18 mmol/L (1.15-1.35)
[2021-08-03 04:19] LABS: Calcium 8.4 mg/dL (8.6-10.3); Phosphorous 6.1 mg/dL (2.7-4.5); Potassium 4.2 mEq/L (3.5-5.1)
[2021-08-03 04:28] LABS: ABG Base Excess -5 mEq/L (-2 to 3); ABG HCO3 20 mEq/L (21-27); ABG Oxygen Saturation 97 % (95-98); ABG PCO2 37 mmHg (35-45); ABG PH 7.35 pH Units (7.32-7.45); ABG PO2 94 mmHg (85-104); ABG TCO2 21 mEq/L (20-26); Blood Gas Modality ASSIST CONTROL; Blood Gas VT 400 cc
[2021-08-03] MEDS: Insulin LISPRO 300 UNITS/3 ML VIAL SUBQ SCH ×4 (04:34→23:37)
[2021-08-03] MEDS: MetroNIDAZOLE 500 MG/100 ML 500 MG/100 ML BAG IVPB SCH ×3 (07:23→23:37)
[2021-08-03] MEDS: Pantoprazole 40 MG VIAL IVP SCH (08:10)
[2021-08-03] MEDS: Docusate Oral Soln 100 MG/10 ML UDC GTUBE SCH (08:10)
[2021-08-03] MEDS: Chlorhexidine Rinse 15 ML MOUTHWASH MM SCH ×2 (08:10→20:19)
[2021-08-03] MEDS: Amiodarone Premix 360 MG/200 ML BAG IVC SCH ×2 (08:22→20:19)
[2021-08-03 08:58] LABS: Protein/Creatinine Ratio,Urine 0.36 mg/mg (0.00-0.20); Sodium, Urine 19.9 mEq/L
[2021-08-03] MEDS: DAPTOmycin 400 MG in 0.9 % Sodium Chloride 100 ML IVPB SCH (11:26)
[2021-08-03] MEDS: Dexmedetomidine HCl 400 MCG/100 ML MLS IVC SCH (19:07)
[2021-08-03] MEDS: Ipratropium/Albuterol Neb 3 ML IH SCH ×2 (20:07→23:20)
[2021-08-03] MEDS: Midazolam HCl 50 MG/100 ML IV.SOLN IVC SCH (20:19)
[2021-08-03] MEDS: QUEtiapine Fumarate 25 MG TABLET PO SCH (20:29)
[2021-08-04] MEDS: Ipratropium/Albuterol Neb 3 ML IH SCH ×5 (03:54→20:18)
[2021-08-04] MEDS: Artificial Tears SOLN 15 ML BOTTLE BOTH EYES SCH ×3 (04:12→11:14)
[2021-08-04] MEDS: Insulin LISPRO 300 UNITS/3 ML VIAL SUBQ SCH ×4 (04:12→23:43)
[2021-08-04 04:35] LABS: White Blood Count 20.5 K/mcL (4.3-11.1)
[2021-08-04 04:36] LABS: Basophils % 0.1 %; Hematocrit 37.9 % (35.3-44.9); Hemoglobin 11.7 g/dL (11.5-15.4); Immature Granulocytes % 1.4 % (0-4); Lymphocytes # 0.6 K/mcL (0.6-4.6); Lymphocytes % 3.1 %; Mean Corpuscular HGB Conc 30.9 g/dL (31.6-35.5); Mean Corpuscular Hemoglobin 30.5 pg (28.0-33.3); Mean Platelet Volume 12.5 fL (9.4-12.4); Monocytes # 1.3 K/mcL (0.0-1.3); Monocytes % 6.2 %; Neutrophils # 18.3 K/mcL (1.6-8.9); Platelet Count 172 K/mcL (140-400); Red Blood Count 3.83 M/mcL (3.82-4.97); Red Cell Distribution Width 15.1 % (11.5-14.5); Segmented Neutrophils % 89.2 %
[2021-08-04 04:53] LABS: Calcium 8.3 mg/dL (8.6-10.3); Magnesium 2.1 mg/dL (1.6-2.6); Phosphorous 5.5 mg/dL (2.7-4.5)
[2021-08-04 04:57] LABS: VBG Ionized Calcium 1.29 mmol/L (1.15-1.35)
[2021-08-04] MEDS: MetroNIDAZOLE 500 MG/100 ML 500 MG/100 ML BAG IVPB SCH ×3 (08:03→23:44)
[2021-08-04] MEDS: Pantoprazole 40 MG VIAL IVP SCH (08:05)
[2021-08-04] MEDS: Amiodarone Premix 360 MG/200 ML BAG IVC SCH (09:15)
[2021-08-04] MEDS: Docusate Oral Soln 100 MG/10 ML UDC GTUBE SCH (09:16)
[2021-08-04] MEDS: Chlorhexidine Rinse 15 ML MOUTHWASH MM SCH (09:16)
[2021-08-04 09:34] LABS: Thyroid Stimulating Hormone 0.756 mcIU/mL (0.340-5.600)
[2021-08-04] MEDS: Dexmedetomidine HCl 400 MCG/100 ML MLS IVC SCH (11:14)
[2021-08-04] MEDS ORDERED: *HR* Amiodarone 200 MG TABLET PO ONE (15:30)
[2021-08-04] MEDS: QUEtiapine Fumarate 25 MG TABLET PO SCH (21:03)
[2021-08-05 03:34] LABS: VBG Ionized Calcium 1.26 mmol/L (1.15-1.35)
[2021-08-05 03:48] LABS: Basophils % 0.1 %; Eosinophils % 0.2 %; Hematocrit 39.7 % (35.3-44.9); Hemoglobin 12.5 g/dL (11.5-15.4); Lymphocytes # 1.1 K/mcL (0.6-4.6); Lymphocytes % 5.1 %; Mean Corpuscular HGB Conc 31.5 g/dL (31.6-35.5); Mean Corpuscular Hemoglobin 30.8 pg (28.0-33.3); Mean Corpuscular Volume 97.8 fL (83.0-100.0); Mean Platelet Volume 12.8 fL (9.4-12.4); Monocytes # 1.5 K/mcL (0.0-1.3); Monocytes % 7.3 %; Neutrophils # 17.8 K/mcL (1.6-8.9); Platelet Count 175 K/mcL (140-400); Red Blood Count 4.06 M/mcL (3.82-4.97); Red Cell Distribution Width 15.1 % (11.5-14.5); Segmented Neutrophils % 86.3 %; White Blood Count 20.6 K/mcL (4.3-11.1)
[2021-08-05] MEDS: Ipratropium/Albuterol Neb 3 ML IH SCH ×7 (03:51→23:38)
[2021-08-05 03:57] LABS: Calcium 8.8 mg/dL (8.6-10.3); Magnesium 2.1 mg/dL (1.6-2.6); Phosphorous 4.9 mg/dL (2.7-4.5); Potassium 4.1 mEq/L (3.5-5.1)
[2021-08-05] MEDS: Insulin LISPRO 300 UNITS/3 ML VIAL SUBQ SCH ×3 (05:24→17:20)
[2021-08-05] MEDS: MetroNIDAZOLE 500 MG/100 ML 500 MG/100 ML BAG IVPB SCH ×3 (07:40→23:29)
[2021-08-05] MEDS: Docusate Oral Soln 100 MG/10 ML UDC GTUBE SCH (07:41)
[2021-08-05] MEDS: Pantoprazole 40 MG VIAL IVP SCH (07:41)
[2021-08-05] MEDS ORDERED: *HR* Amiodarone 200 MG TABLET PO SCH (09:00)
[2021-08-05] MEDS: *HR* Labetalol 20 MG/4 ML SYRINGE IVP PRN ×2 (09:25→17:20)
[2021-08-05] MEDS: *HR* Metoprolol 5 MG/5 ML VIAL IVP ONE ×2 (10:20→23:42)
[2021-08-05] MEDS: DAPTOmycin 400 MG in 0.9 % Sodium Chloride 100 ML IVPB SCH (12:04)
[2021-08-05] MEDS ORDERED: E-Z-PAQUE (BARIUM SULF) SUSP 1 BOTTLE PO ONE (15:37)
[2021-08-05] MEDS ORDERED: E-Z-HD (BARIUM SULF) SUSPENSION PO ONE (15:37)
[2021-08-05] MEDS ORDERED: *HR* Dextrose 50 % in Water (Syg) 50 ML SYRINGE IVP PRN (19:34)
[2021-08-05] MEDS ORDERED: Acetaminophen 325 MG TABLET PO PRN (19:34)
[2021-08-05] MEDS ORDERED: *HR* Labetalol 20 MG/4 ML SYRINGE IVP PRN (19:34)
[2021-08-05] MEDS ORDERED: Naloxone 0.4 MG/ML INJ IVP PRN (19:34)
[2021-08-05] MEDS ORDERED: D5% in Water 1,000 ML IVC PRN (19:34)
[2021-08-05] MEDS ORDERED: Dextrose Gel 15 GM/37.5 ML TUBE PO PRN ×2 (19:34)
[2021-08-05] MEDS ORDERED: *HR* Metoprolol 5 MG/5 ML VIAL IVP ONE ×2 (23:33)
[2021-08-05] MEDS ORDERED: Furosemide 20 MG/2 ML VIAL IVP ONE (23:33)
[2021-08-05] MEDS ORDERED: *HR* LORazepam 2 MG/ML VIAL IVP ONE (23:38)
[2021-08-06 03:27] LABS: Basophils % 0.1 %; Eosinophils % 0.1 %; Hematocrit 38.2 % (35.3-44.9); Nucleated Red Blood Cells 0.1 /100 WBC (0); Red Cell Distribution Width 14.8 % (11.5-14.5)
[2021-08-06 03:28] LABS: Hemoglobin 12.2 g/dL (11.5-15.4); Immature Granulocytes % 0.9 % (0-4); Lymphocytes # 0.7 K/mcL (0.6-4.6); Lymphocytes % 2.2 %; Mean Corpuscular HGB Conc 31.9 g/dL (31.6-35.5); Mean Corpuscular Volume 97.2 fL (83.0-100.0); Mean Platelet Volume 13.3 fL (9.4-12.4); Monocytes # 1.7 K/mcL (0.0-1.3); Monocytes % 5.3 %; Neutrophils # 30.1 K/mcL (1.6-8.9); Platelet Count 167 K/mcL (140-400); Red Blood Count 3.93 M/mcL (3.82-4.97); Segmented Neutrophils % 91.4 %
[2021-08-06 03:41] LABS: VBG HCO3 24 mEq/L (21-27); VBG Ionized Calcium 1.26 mmol/L (1.15-1.35); VBG PCO2 48 mmHg (41-51); VBG PH 7.31 pH Units (7.32-7.42); VBG PO2 56 mmHg (25-50)
[2021-08-06 03:45] LABS: Magnesium 2.2 mg/dL (1.6-2.6); Phosphorous 3.9 mg/dL (2.7-4.5); Potassium 3.6 mEq/L (3.5-5.1)
[2021-08-06 03:51] LABS: Platelet Estimate Normal (Normal); White Blood Count 32.9 K/mcL (4.3-11.1)
[2021-08-06] MEDS ORDERED: Furosemide 20 MG/2 ML VIAL IVP ONE ×2 (04:03→04:06)
[2021-08-06] MEDS ORDERED: *HR* LORazepam 2 MG/ML VIAL IVP ONE (04:05)
[2021-08-06] MEDS ORDERED: *HR* LORazepam 2 MG/ML VIAL ONE (04:05)
[2021-08-06] MEDS: Insulin LISPRO 300 UNITS/3 ML VIAL SUBQ SCH ×3 (04:16→12:48)
[2021-08-06] MEDS: Ipratropium/Albuterol Neb 3 ML IH SCH ×6 (04:21→23:41)
[2021-08-06] MEDS: Budesonide/Formoterol 160/4.5 1 PUFF INH IH SCH ×2 (07:48→20:07)
[2021-08-06] MEDS: MetroNIDAZOLE 500 MG/100 ML 500 MG/100 ML BAG IVPB SCH (08:25)
[2021-08-06] MEDS ORDERED: *HR* Amiodarone 200 MG TABLET PO SCH (09:00)
[2021-08-06] MEDS ORDERED: carBAMazepine 200 MG TABLET PO SCH (09:00)
[2021-08-06] MEDS ORDERED: Chlorhexidine Rinse 15 ML MOUTHWASH MM SCH (09:00)
[2021-08-06] MEDS ORDERED: Docusate Oral Soln 100 MG/10 ML UDC GTUBE SCH (09:00)
[2021-08-06] MEDS: Furosemide 20 MG/2 ML VIAL IVP SCH ×2 (10:58→21:34)
[2021-08-06] MEDS ORDERED: Scopolamine Patch 1.5 MG PATCH.TD72 TD PRN (14:01)
[2021-08-06] MEDS ORDERED: Acetaminophen 650 MG RECTAL SUPP RC PRN (14:03)
[2021-08-06] MEDS: *HR* LORazepam Oral Conc 2 MG/ML SL PRN ×2 (15:43→22:38)
[2021-08-06] MEDS: Haloperidol Lactate 5 MG/ML VIAL IVP PRN (16:18)
[2021-08-06] MEDS: *HR* HYDROmorphone (PF) 1 MG/ML SYRINGE IVP PRN ×2 (18:21→21:35)
[2021-08-06] MEDS: Atropine 1% Opth Drops 100 DROP/5 ML BOTTLE SL PRN ×2 (18:22→23:16)
[2021-08-07] MEDS: *HR* HYDROmorphone (PF) 1 MG/ML SYRINGE IVP PRN ×3 (00:52→19:54)
[2021-08-07] MEDS: *HR* LORazepam Oral Conc 2 MG/ML SL PRN ×5 (03:06→23:10)
[2021-08-07] MEDS: Ipratropium/Albuterol Neb 3 ML IH SCH ×6 (04:16→23:04)
[2021-08-07] MEDS: Atropine 1% Opth Drops 100 DROP/5 ML BOTTLE SL PRN (05:47)
[2021-08-07] MEDS: Budesonide/Formoterol 160/4.5 1 PUFF INH IH SCH ×2 (09:49→19:41)
[2021-08-07] MEDS: Furosemide 20 MG/2 ML VIAL IVP SCH ×2 (10:48→19:55)
[2021-08-07] MEDS ORDERED: DAPTOmycin 400 MG in 0.9 % Sodium Chloride 100 ML IVPB SCH (11:00)
[2021-08-08] MEDS: *HR* HYDROmorphone (PF) 1 MG/ML SYRINGE IVP PRN ×3 (00:51→06:53)
[2021-08-08] MEDS: Ipratropium/Albuterol Neb 3 ML IH SCH ×3 (03:22→15:39)
[2021-08-08] MEDS: *HR* LORazepam Oral Conc 2 MG/ML SL PRN ×4 (05:06→23:48)
[2021-08-08] MEDS: Haloperidol Lactate 5 MG/ML VIAL IVP PRN (06:53)
[2021-08-08 10:50] VITALS: TEMP 98.2
[2021-08-08] MEDS ORDERED: Haloperidol Oral Conc 10 MG/5 ML UDC PO PRN (11:16)
[2021-08-08] MEDS: Furosemide 20 MG/2 ML VIAL IVP SCH (11:19)
[2021-08-08] MEDS: Atropine 1% Opth Drops 100 DROP/5 ML BOTTLE SL PRN ×2 (11:29→20:59)
[2021-08-08] MEDS: Budesonide/Formoterol 160/4.5 1 PUFF INH IH SCH (15:24)
[2021-08-08] MEDS ORDERED: Ipratropium/Albuterol Neb 3 ML IH PRN (18:40)
[2021-08-08 19:23] VITALS: BP 137/92; PULSE 130; O2SAT 87
== END 2021-08-09 04:50 | disposition expired | DRG 628 ==
LOC: EMEROOARM 09:39 → 3BNU 09:39 → ICNU 07-26 21:20 → SUATTDRO 07-27 11:56 → 2NENU 08-05 15:16 → 2ANU 08-06 14:20
PROVIDERS: ADMIT Internal Medicine; ATTEND Internal Medicine